=== PATIENT | female | born 1965 | race Two or more races ===

== ENCOUNTER → 2016-07-16 | Outpatient (CLI) | payer MEDICARE, MEDICAID ==
[~2016-07-16] MED LIST: CLON0.123; FOLI1TAB6; METH2.5T3; OXYCONTIN; PERCOT; VALS40TA2
[2016-07-16 15:15] LABS: Basophils # (auto) 0 uL; Basophils % (auto) 0.4 % (0.0-2.0); DEFINITIVE VIEW TRANSMISSION; Eosinophils # (auto) 0.3 uL; Eosinophils % (auto) 6.7 % (0.0-7.0); Hematocrit 37.3 % (36.0-46.0); Hemoglobin 12.1 g/dL (12.2-16.2); Lymphocytes # (auto) 1.5 uL; Lymphocytes % (auto) 34.2 % (10.0-50.0); Mean Corpuscular Hgb Conc. 32.4 g/dL (32.0-36.0); Mean Corpuscular Volume 83.4 fL (80.0-100.0); Mean Platelet Volume 7.4 fL (7.4-10.4); Monocytes # (auto) 0.4 uL; Monocytes % (auto) 9.2 % (0.0-12.0); Neutrophils # (auto) 2.1 uL; Neutrophils % (auto) 49.5 % (37.0-80.0); Platelet Count (auto) 267 10^3/uL (140-450); Red Cell Distribution Width 15.6 % (11.6-16.0); White Blood Cell 4.3 10^3/uL (4.4-10.8)
[2016-07-16 15:44] LABS: Albumin 3.3 g/dL (3.4-5.0); BUN/Creatinine Ratio 15.9; Bilirubin, Total 0.3 mg/dL (0.2-1.0); Calcium 8.9 mg/dL (8.5-10.1); Potassium 3.5 mmol/L (3.5-5.1); Total Protein 8.6 g/dL (6.4-8.2)
== END | disposition home or self-care (01) ==
LOC: LAB 14:55
DX: I10 Essential (primary) hypertension (principal); Z79.899 Other long term (current) drug therapy; D64.9 Anemia, unspecified; M25.50 Pain in unspecified joint; M06.9 Rheumatoid arthritis, unspecified
CPT/HCPCS: 36415; 80053; 85025; 85652; 86141

== ENCOUNTER 2016-11-16 01:29 | Emergency (ER) | payer MEDICARE, MEDICAID ==
[~2016-11-16] VITALS: Ht 162.6 cm; Wt 104.3 kg
[2016-11-16 01:47] VITALS: BP 149/91
== END 2016-11-16 07:48 | disposition left against medical advice (07) ==
LOC: ER 01:29
DX: M79.642 Pain in left hand (principal); Z53.21 Procedure and treatment not carried out due to patient leaving prior to being seen by health care provider; W23.0XXA Caught, crushed, jammed, or pinched between moving objects, initial encounter; Y93.89 Activity, other specified; Y92.89 Other specified places as the place of occurrence of the external cause; Y99.8 Other external cause status
CPT/HCPCS: 73130

== ENCOUNTER → 2016-12-10 | Outpatient (CLI) | payer MEDICARE, MEDICAID ==
[2016-12-10 15:18] LABS: Basophils # (auto) 0 uL; Basophils % (auto) 0.2 % (0.0-2.0); CONDITION Y; Eosinophils # (auto) 0.1 uL; Eosinophils % (auto) 1.5 % (0.0-7.0); Hematocrit 37.8 % (36.0-46.0); Hemoglobin 12.5 g/dL (12.2-16.2); Lymphocytes # (auto) 1.3 uL; Lymphocytes % (auto) 21.9 % (10.0-50.0); Mean Corpuscular Volume 87.7 fL (80.0-100.0); Mean Platelet Volume 6.8 fL (7.4-10.4); Monocytes # (auto) 0.4 uL; Monocytes % (auto) 6.7 % (0.0-12.0); Neutrophils % (auto) 69.7 % (37.0-80.0); Platelet Count (auto) 300 10^3/uL (140-450); Red Cell Distribution Width 15.8 % (11.6-16.0); White Blood Cell 5.8 10^3/uL (4.4-10.8)
[2016-12-10 15:43] LABS: Albumin 3.3 g/dL (3.4-5.0); Calcium 8.5 mg/dL (8.5-10.1); Potassium 3.1 mmol/L (3.5-5.1)
[2016-12-10 16:34] LABS: BUN/Creatinine Ratio 13.3
[2016-12-10 16:38] LABS: Bilirubin, Total 0.2 mg/dL (0.2-1.0); Total Protein 8.4 g/dL (6.4-8.2)
== END | disposition home or self-care (01) ==
LOC: LAB 15:04
DX: I10 Essential (primary) hypertension (principal); M06.9 Rheumatoid arthritis, unspecified; M25.50 Pain in unspecified joint; D64.9 Anemia, unspecified; Z79.899 Other long term (current) drug therapy
CPT/HCPCS: 36415; 80053; 85025; 85652; 86141

== ENCOUNTER 2016-12-26 17:52 | Emergency (ER) | payer MEDICARE, MEDICAID ==
[~2016-12-26] VITALS: Ht 162.6 cm; Wt 99.8 kg
[2016-12-26 18:08] VITALS: BP 134/84
== END 2016-12-26 23:59 | disposition left against medical advice (07) ==
LOC: ER 17:54
DX: R07.9 Chest pain, unspecified (principal); Z53.21 Procedure and treatment not carried out due to patient leaving prior to being seen by health care provider
CPT/HCPCS: 93005

== ENCOUNTER → 2017-03-11 | Outpatient (CLI) | payer MEDICARE, MEDICAID ==
[2017-03-11 15:16] LABS: Hematocrit 38.9 % (36.0-46.0); Hemoglobin 12.7 g/dL (12.2-16.2); Mean Corpuscular Hemoglobin 28.8 pg (28.0-32.0); Mean Corpuscular Hgb Conc. 32.7 g/dL (32.0-36.0); Platelet Count (auto) 217 10^3/uL (140-450); Red Blood Cells 4.43 10^6/uL (4.0-5.20); Red Cell Distribution Width 14.5 % (11.8-14.3); White Blood Cell 6.6 10^3/uL (4.4-10.8)
[2017-03-11 15:42] LABS: Albumin 3.6 g/dL (3.4-5.0); BUN/Creatinine Ratio 17.8; Bilirubin, Total 0.4 mg/dL (0.2-1.0); CRP High Sensitivity 2.16 mg/dL (< 0.3); Calcium 8.4 mg/dL (8.5-10.1); Potassium 3.8 mmol/L (3.5-5.1); Total Protein 8.8 g/dL (6.4-8.2)
[2017-03-11 15:53] LABS: Band Neutrophils % (manual) 0; Basophils % (manual) 0 (0.0-2.0); Blast Cells 0; Metamyelocytes % 0; Myelocytes % 0; Promyelocytes % 0; Reactive Lymphocytes 0
[2017-03-11 20:40] LABS: Eosinophils % (manual) 23 (0-7); Lymphocytes % (manual) 38 (10.0-50.0); Monocytes % (manual) 5 (0-12)
== END | disposition home or self-care (01) ==
LOC: LAB 14:59
DX: I10 Essential (primary) hypertension (principal); I70.0 Atherosclerosis of aorta; E78.00 Pure hypercholesterolemia, unspecified; M06.9 Rheumatoid arthritis, unspecified; D64.9 Anemia, unspecified; Z79.899 Other long term (current) drug therapy
CPT/HCPCS: 36415; 80053; 85007; 85027; 85652; 86141

== ENCOUNTER 2017-08-26 19:17 | Emergency (ER) | payer MEDICARE, MEDICAID ==
[~2017-08-26] VITALS: Ht 162.6 cm; Wt 106.1 kg
[2017-08-26 20:22] VITALS: BP 137/65
[2017-08-26 21:12] LABS: Basophils # (auto) 0 uL; Basophils % (auto) 0.2 % (0.0-2.0); Eosinophils # (auto) 0.1 uL; Eosinophils % (auto) 1.3 % (0.0-7.0); Hematocrit 34.2 % (36.0-46.0); Hemoglobin 11.1 g/dL (12.2-16.2); Lymphocytes # (auto) 1.2 uL; Lymphocytes % (auto) 17.2 % (10.0-50.0); Mean Corpuscular Hemoglobin 28.7 pg (28.0-32.0); Mean Corpuscular Hgb Conc. 32.4 g/dL (32.0-36.0); Mean Corpuscular Volume 88.4 fL (80.0-100.0); Monocytes # (auto) 0.5 uL; Monocytes % (auto) 6.4 % (0.0-12.0); Neutrophils # (auto) 5.3 uL; Neutrophils % (auto) 74.9 % (37.0-80.0); Nucleated Red Blood Cells % 0.1 %; Platelet Count (auto) 215 10^3/uL (140-450); Red Blood Cells 3.87 10^6/uL (4.0-5.20); Red Cell Distribution Width 14.6 % (11.8-14.3)
[2017-08-26 21:32] LABS: Alanine Aminotransferase 20 U/L (13-56); Alkaline Phosphatase 76 U/L (45-117); Anion Gap 6 (5-15); Aspartate Aminotransferase 18 U/L (15-37); Bilirubin, Total 0.3 mg/dL (0.2-1.0); Blood Urea Nitrogen 13 mg/dL (7-18); Calcium 8.3 mg/dL (8.5-10.1); Carbon Dioxide 31 mmol/L (21-32); Chloride 100 mmol/L (98-107); GFR African American 95 mL/min; GFR Non-African American 79 mL/min; Glucose 80 mg/dL (74-106); Magnesium 2.2 mg/dL (1.6-2.6); Potassium 3.5 mmol/L (3.5-5.1); Sodium 137 mmol/L (136-145); Total Protein 8.1 g/dL (6.4-8.2)
== END 2017-08-27 01:25 | disposition left against medical advice (07) ==
LOC: ER 19:17
DX: R07.9 Chest pain, unspecified (principal); Z53.21 Procedure and treatment not carried out due to patient leaving prior to being seen by health care provider
CPT/HCPCS: 36415; 71045; 73030; 80053; 83735; 83880; 84484; 85025; 93005

== ENCOUNTER → 2018-01-15 | Outpatient (CLI) | payer MEDICARE, MEDICAID ==
[2018-01-15 13:02] LABS: Basophils # (auto) 0 uL; Basophils % (auto) 0.3 % (0.0-2.0); Eosinophils # (auto) 0.2 uL; Eosinophils % (auto) 3.6 % (0.0-7.0); Hematocrit 35.5 % (36.0-46.0); Hemoglobin 11.6 g/dL (12.2-16.2); Lymphocytes # (auto) 1.4 uL; Lymphocytes % (auto) 21.2 % (10.0-50.0); Mean Corpuscular Hemoglobin 29.1 pg (28.0-32.0); Mean Corpuscular Hgb Conc. 32.7 g/dL (32.0-36.0); Mean Corpuscular Volume 89.1 fL (80.0-100.0); Monocytes # (auto) 0.4 uL; Monocytes % (auto) 6.9 % (0.0-12.0); Neutrophils # (auto) 4.4 uL; Platelet Count (auto) 177 10^3/uL (140-450); Red Blood Cells 3.99 10^6/uL (4.0-5.20); Red Cell Distribution Width 14.3 % (11.8-14.3); White Blood Cell 6.5 10^3/uL (4.4-10.8)
[2018-01-15 13:50] LABS: Albumin 3.1 g/dL (3.4-5.0); BUN/Creatinine Ratio 12.2; Bilirubin, Total 0.7 mg/dL (0.2-1.0); Calcium 8.7 mg/dL (8.5-10.1); Potassium 3.7 mmol/L (3.5-5.1); Total Protein 7.9 g/dL (6.4-8.2)
== END | disposition home or self-care (01) ==
LOC: LAB 12:43
PROVIDERS: ATTEND Physician Assistant
DX: Z00.01 Encounter for general adult medical examination with abnormal findings (principal); I10 Essential (primary) hypertension; E03.9 Hypothyroidism, unspecified; M13.0 Polyarthritis, unspecified; M06.9 Rheumatoid arthritis, unspecified
CPT/HCPCS: 36415; 80053; 80061; 84443; 85025

== ENCOUNTER → 2018-03-04 | Outpatient (CLI) | payer MEDICARE, MEDICAID ==
[~2018-03-04] MED LIST changes: +ALBUTEROL SULF 2.5 MG/0.5ML(0.5%) NEB SOLN ONE
== END | disposition home or self-care (01) ==
LOC: RT 08:09
PROVIDERS: ATTEND Internal Medicine Pulmonary Disease
DX: R06.00 Dyspnea, unspecified (principal); M54.30 Sciatica, unspecified side; R09.02 Hypoxemia
CPT/HCPCS: 94060; 94618; 94727; 94729; J7611

== ENCOUNTER 2018-09-12 02:24 | Emergency (ER) | payer MEDICARE, MEDICAID ==
[~2018-09-12] VITALS: Ht 162.6 cm; Wt 94.3 kg
[~2018-09-12 02:24] MED LIST changes: -ALBUTEROL SULF 2.5 MG/0.5ML(0.5%) NEB SOLN ONE
[2018-09-12 02:40] VITALS: BP 165/92
[2018-09-12] MEDS ORDERED: ONDANSETRON ODT 4 MG TAB PO ONE (04:15)
[2018-09-12] MEDS ORDERED: MEPERIDINE HCL (50 MG/ML) 1 ML VIAL IM ONE (04:15)
[2018-09-12] MEDS ORDERED: TRIAMCINOLONE 40MG/ML 1ML VIAL IM ONE (04:15)
[2018-09-12] MEDS ORDERED: EPINEPHrine HCL 1 MG/1 ML AMP IM ONE (05:00)
== END 2018-09-12 05:28 | disposition home or self-care (01) ==
LOC: ER 02:27
DX: M06.9 Rheumatoid arthritis, unspecified (principal); B35.3 Tinea pedis; J44.9 Chronic obstructive pulmonary disease, unspecified; I10 Essential (primary) hypertension; Z88.2 Allergy status to sulfonamides; Z91.040 Latex allergy status
CPT/HCPCS: 96372; 99283; J0171; J2175; J3301; Q0162

== ENCOUNTER 2019-04-15 03:35 | Emergency (ER) | payer MEDICARE, MEDICAID ==
[~2019-04-15] VITALS: Ht 162.6 cm; Wt 98.4 kg
[2019-04-15] MEDS ORDERED: KETOROLAC TROMETH 60MG/2ML VIAL IM ONE (06:00)
[2019-04-15 06:09] LABS: Basophils # (auto) 0 uL; Basophils % (auto) 0.3 % (0.0-2.0); Eosinophils # (auto) 0 uL; Hematocrit 37.2 % (36.0-46.0); Hemoglobin 12.5 g/dL (12.2-16.2); Lymphocytes # (auto) 0.8 uL; Lymphocytes % (auto) 9.2 % (10.0-50.0); Mean Corpuscular Hemoglobin 28.7 pg (28.0-32.0); Mean Corpuscular Hgb Conc. 33.6 g/dL (32.0-36.0); Mean Corpuscular Volume 85.4 fL (80.0-100.0); Monocytes # (auto) 0.1 uL; Monocytes % (auto) 0.7 % (0.0-12.0); Neutrophils % (auto) 89.8 % (37.0-80.0); Platelet Count (auto) 223 10^3/uL (140-450); Red Blood Cells 4.35 10^6/uL (4.0-5.20); White Blood Cell 8.9 10^3/uL (4.4-10.8)
[2019-04-15 06:20] LABS: Urine Bacteria NONE SEEN /hpf (None Seen); Urine Blood TRACE /uL (Negative); Urine Specific Gravity 1.007 (1.001-1.035); Urine WBC 1 /hpf (0 - 5)
[2019-04-15 06:29] LABS: Albumin 3.5 g/dL (3.4-5.0); Anion Gap 8 (5-15); Blood Urea Nitrogen 12 mg/dL (7-18); Calcium 8.7 mg/dL (8.5-10.1); Carbon Dioxide 25 mmol/L (21-32); Chloride 109 mmol/L (98-107); Glucose 137 mg/dL (74-106); Potassium 3.7 mmol/L (3.5-5.1); Sodium 142 mmol/L (136-145)
[2019-04-15 06:33] LABS: Alanine Aminotransferase 13 U/L (13-56); Alkaline Phosphatase 87 U/L (45-117); Aspartate Aminotransferase 12 U/L (15-37); BUN/Creatinine Ratio 17.4; Bilirubin, Total 0.3 mg/dL (0.2-1.0); GFR African American 114 mL/min; GFR Non-African American 95 mL/min; Total Protein 8.7 g/dL (6.4-8.2)
[2019-04-15] MEDS ORDERED: PROMETHAZINE HCL 25 MG/ML 1ML IV ONE (08:30)
[2019-04-15] MEDS ORDERED: HYDROmorphone HCL 2 MG/ML VL IV ONE (08:30)
[2019-04-15 10:05] VITALS: BP 114/54
== END 2019-04-15 12:38 | disposition left against medical advice (07) ==
LOC: EDBD 03:35 → ER 03:37
DX: G89.29 Other chronic pain (principal); R07.81 Pleurodynia; R11.2 Nausea with vomiting, unspecified; M19.90 Unspecified osteoarthritis, unspecified site; J44.9 Chronic obstructive pulmonary disease, unspecified; I10 Essential (primary) hypertension; Z91.040 Latex allergy status; Z88.2 Allergy status to sulfonamides; Z88.8 Allergy status to other drugs, medicaments and biological substances
CPT/HCPCS: 36415; 80053; 81001; 84484; 85025; 93005; 96372; 96374; 96375; 99284; J1170; J1885; J2550

== ENCOUNTER → 2019-12-16 | Outpatient (CLI) | payer MEDICARE, MEDICAID ==
[~2019-12-16] MED LIST changes: +METH2.5T; -METH2.5T3
[2019-12-16 15:42] LABS: Basophils # (auto) 0 10 ^3/uL (0-0.2); Basophils % (auto) 0.3 % (0.0-2.0); Eosinophils # (auto) 0.2 10 ^3/uL (0-0.8); Eosinophils % (auto) 3.5 % (0.0-7.0); Hematocrit 35.1 % (36.0-46.0); Hemoglobin 11.3 g/dL (12.2-16.2); Lymphocytes # (auto) 1.1 10 ^3/uL (0.4-5.4); Lymphocytes % (auto) 20.7 % (10.0-50.0); Mean Corpuscular Hemoglobin 27.3 pg (28.0-32.0); Mean Corpuscular Hgb Conc. 32.2 g/dL (32.0-36.0); Mean Corpuscular Volume 84.8 fL (80.0-100.0); Monocytes # (auto) 0.3 10 ^3/uL (0-1.3); Monocytes % (auto) 6.5 % (0.0-12.0); Neutrophils # (auto) 3.5 10 ^3/uL (1.6-8.6); Platelet Count (auto) 219 10^3/uL (140-450); Red Blood Cells 4.13 10^6/uL (4.0-5.20); White Blood Cell 5.1 10^3/uL (4.4-10.8)
[2019-12-16 17:11] LABS: Albumin 3.2 g/dL (3.4-5.0); Calcium 8.8 mg/dL (8.5-10.1); Potassium 3.8 mmol/L (3.5-5.1)
[2019-12-16 17:20] LABS: BUN/Creatinine Ratio 18.6; Bilirubin, Total 0.2 mg/dL (0.2-1.0); CRP High Sensitivity 1.72 mg/dL (< 0.3); Total Protein 8.1 g/dL (6.4-8.2)
== END | disposition home or self-care (01) ==
LOC: LAB 15:01
PROVIDERS: ATTEND Physician Assistant
DX: E03.9 Hypothyroidism, unspecified (principal); M06.4 Inflammatory polyarthropathy; M06.9 Rheumatoid arthritis, unspecified; I10 Essential (primary) hypertension; Z00.00 Encounter for general adult medical examination without abnormal findings; M79.7 Fibromyalgia; L40.9 Psoriasis, unspecified
CPT/HCPCS: 36415; 80053; 80061; 82306; 82550; 84436; 84443; 84480; 85025; 85652; 86141

== ENCOUNTER → 2020-08-17 | Outpatient (CLI) | payer MEDICARE, MEDICAID ==
[2020-08-17 17:15] LABS: Basophils # (auto) 0 10 ^3/uL (0-0.2); Basophils % (auto) 0.5 % (0.0-2.0); Eosinophils # (auto) 0.2 10 ^3/uL (0-0.8); Eosinophils % (auto) 5.3 % (0.0-7.0); Hematocrit 33.4 % (36.0-46.0); Hemoglobin 11.2 g/dL (12.2-16.2); Lymphocytes # (auto) 1.4 10 ^3/uL (0.4-5.4); Lymphocytes % (auto) 35.4 % (10.0-50.0); Mean Corpuscular Hemoglobin 29.1 pg (28.0-32.0); Mean Corpuscular Hgb Conc. 33.6 g/dL (32.0-36.0); Mean Corpuscular Volume 86.5 fL (80.0-100.0); Monocytes # (auto) 0.3 10 ^3/uL (0-1.3); Neutrophils # (auto) 2.1 10 ^3/uL (1.6-8.6); Neutrophils % (auto) 51.8 % (37.0-80.0); Platelet Count (auto) 194 10^3/uL (140-450); Red Blood Cells 3.86 10^6/uL (4.0-5.20); Red Cell Distribution Width 14.1 % (11.8-14.3)
[2020-08-17 17:18] LABS: Calcium 8.7 mg/dL (8.5-10.1)
[2020-08-17 17:24] LABS: Urine Amorphous Crystal FEW /hpf (None Seen); Urine Bacteria FEW /hpf (None Seen); Urine Blood Negative /uL (Negative); Urine Specific Gravity 1.014 (1.001-1.035); Urine WBC 1 /hpf (0 - 5)
[2020-08-17 17:26] LABS: BUN/Creatinine Ratio 15.6; Bilirubin, Total 0.2 mg/dL (0.2-1.0); CRP High Sensitivity 3.48 mg/dL (< 0.3); Total Protein 7.8 g/dL (6.4-8.2)
[2020-08-18 13:35] LABS: Hepatitis B Core IgM Negative; Hepatitis B Surface Antigen Negative (Negative)
== END | disposition home or self-care (01) ==
LOC: LAB 16:24
DX: M06.9 Rheumatoid arthritis, unspecified (principal); M54.2 Cervicalgia; Z79.899 Other long term (current) drug therapy
CPT/HCPCS: 36415; 80053; 81001; 85025; 85652; 86038; 86141; 86431; 86705; 87086; 87340

== ENCOUNTER 2020-09-11 08:59 | Emergency (ER) | payer MEDICARE, MEDICAID ==
[~2020-09-11] VITALS: Ht 162.6 cm; Wt 90.7 kg
[2020-09-11 09:40] VITALS: BP 140/98
[2020-09-11] MEDS ORDERED: KETOROLAC TROMETH 60MG/2ML VIAL IM ONE (10:00)
== END 2020-09-11 10:27 | disposition home or self-care (01) ==
LOC: ER 08:59
DX: M54.16 Radiculopathy, lumbar region (principal); J44.9 Chronic obstructive pulmonary disease, unspecified; I10 Essential (primary) hypertension; Z90.49 Acquired absence of other specified parts of digestive tract; Z88.1 Allergy status to other antibiotic agents; Z88.2 Allergy status to sulfonamides; Z91.040 Latex allergy status
CPT/HCPCS: 96372; 99283; J1885

== ENCOUNTER → 2021-04-14 | Outpatient (CLI) | payer MEDICARE, MEDICAID ==
[2021-04-14 15:35] LABS: Basophils # (auto) 0 10 ^3/uL (0-0.2); Basophils % (auto) 0.3 % (0.0-2.0); Eosinophils # (auto) 0.2 10 ^3/uL (0-0.8); Eosinophils % (auto) 4.1 % (0.0-7.0); Hematocrit 34.7 % (36.0-46.0); Hemoglobin 11.4 g/dL (12.2-16.2); Lymphocytes # (auto) 1.2 10 ^3/uL (0.4-5.4); Lymphocytes % (auto) 24.5 % (10.0-50.0); Mean Corpuscular Hemoglobin 27.3 pg (28.0-32.0); Mean Corpuscular Hgb Conc. 32.9 g/dL (32.0-36.0); Monocytes # (auto) 0.3 10 ^3/uL (0-1.3); Monocytes % (auto) 5.5 % (0.0-12.0); Neutrophils # (auto) 3.1 10 ^3/uL (1.6-8.6); Neutrophils % (auto) 65.6 % (37.0-80.0); Nucleated Red Blood Cells % 0.1 %; Red Blood Cells 4.18 10^6/uL (4.0-5.20); Red Cell Distribution Width 13.9 % (11.8-14.3); White Blood Cell 4.8 10^3/uL (4.4-10.8)
[2021-04-14 16:10] LABS: Albumin 2.9 g/dL (3.4-5.0); BUN/Creatinine Ratio 24.1; Calcium 8.2 mg/dL (8.5-10.1); Potassium 4.1 mmol/L (3.5-5.1)
[2021-04-14 16:13] LABS: Bilirubin, Total 0.3 mg/dL (0.2-1.0)
== END | disposition home or self-care (01) ==
LOC: LAB 15:06
PROVIDERS: ATTEND Nurse Practitioner Family
DX: E03.9 Hypothyroidism, unspecified (principal); M79.7 Fibromyalgia; M06.9 Rheumatoid arthritis, unspecified; I10 Essential (primary) hypertension; Z00.00 Encounter for general adult medical examination without abnormal findings
CPT/HCPCS: 36415; 80053; 84439; 84443; 85025; 85652; 86431

== ENCOUNTER 2021-11-22 16:16 | Emergency (ER) | payer MEDICARE, MEDICAID ==
[~2021-11-22] VITALS: Ht 162.6 cm; Wt 88.5 kg
[2021-11-22 19:39] VITALS: BP 148/88
[2021-11-22] MEDS ORDERED: DexAMETHasone SOD PHOS 10MG/1ML VIAL INJ PO ONE (20:15)
[2021-11-22] MEDS ORDERED: diphenhdrAMINE HCL 12.5 MG/5 ML UD PO ONE (20:15)
[2021-11-22] MEDS ORDERED: PRED20TA2 PO (20:23)
[2021-11-22] MEDS ORDERED: AMOX-277 PO (20:23)
== END 2021-11-22 20:46 | disposition home or self-care (01) ==
LOC: ER 16:16
DX: L40.50 Arthropathic psoriasis, unspecified (principal); I10 Essential (primary) hypertension; J44.9 Chronic obstructive pulmonary disease, unspecified; Z90.49 Acquired absence of other specified parts of digestive tract; Z79.2 Long term (current) use of antibiotics; Z79.899 Other long term (current) drug therapy; Z88.1 Allergy status to other antibiotic agents; Z88.2 Allergy status to sulfonamides; Z91.040 Latex allergy status
CPT/HCPCS: 99283; J1100

== ENCOUNTER 2021-12-20 13:52 | Emergency (ER) | payer MEDICARE, MEDICAID ==
[~2021-12-20] VITALS: Ht 162.6 cm; Wt 98.6 kg
[~2021-12-20 13:52] MED LIST changes: +AMOX-277 PO; +PRED20TA2 PO
[2021-12-20 14:24] VITALS: BP 153/93
[2021-12-20 17:11] LABS: Basophils # (auto) 0 10 ^3/uL (0-0.2); Basophils % (auto) 0.3 % (0.0-2.0); Eosinophils # (auto) 0.3 10 ^3/uL (0-0.8); Eosinophils % (auto) 6.9 % (0.0-7.0); Hematocrit 36.6 % (36.0-46.0); Hemoglobin 11.7 g/dL (12.2-16.2); Lymphocytes # (auto) 1.1 10 ^3/uL (0.4-5.4); Lymphocytes % (auto) 27.1 % (10.0-50.0); Mean Corpuscular Hemoglobin 27.5 pg (28.0-32.0); Mean Corpuscular Hgb Conc. 32.1 g/dL (32.0-36.0); Mean Corpuscular Volume 85.6 fL (80.0-100.0); Monocytes # (auto) 0.3 10 ^3/uL (0-1.3); Monocytes % (auto) 6.6 % (0.0-12.0); Neutrophils # (auto) 2.3 10 ^3/uL (1.6-8.6); Neutrophils % (auto) 59.1 % (37.0-80.0); Nucleated Red Blood Cells % 0.1 %; Red Blood Cells 4.27 10^6/uL (4.0-5.20); Red Cell Distribution Width 13.6 % (11.8-14.3); White Blood Cell 3.9 10^3/uL (4.4-10.8)
[2021-12-20 17:49] LABS: Albumin 2.9 g/dL (3.4-5.0); BUN/Creatinine Ratio 17.5; Calcium 8.4 mg/dL (8.5-10.1); Potassium 3.7 mmol/L (3.5-5.1)
[2021-12-20 17:52] LABS: Bilirubin, Total 0.2 mg/dL (0.2-1.0); Total Protein 7.3 g/dL (6.4-8.2)
== END 2021-12-21 06:41 | disposition left against medical advice (07) ==
LOC: ER 13:52
DX: S91.002A Unspecified open wound, left ankle, initial encounter (principal); Z53.21 Procedure and treatment not carried out due to patient leaving prior to being seen by health care provider; X58.XXXA Exposure to other specified factors, initial encounter; Y93.89 Activity, other specified; Y92.89 Other specified places as the place of occurrence of the external cause; Y99.8 Other external cause status
CPT/HCPCS: 36415; 80053; 83605; 85025; 87040

== ENCOUNTER 2024-11-06 18:31 | Inpatient (IN) | payer MEDICARE, MEDICAID ==
[~2024-11-06] VITALS: Ht 162.6 cm; Wt 94.0 kg
[~2024-11-06 18:31] MED LIST changes: -AMOX-277 PO; +AMOX875T4 PO; +BACL10TA PO; +FOLI-119; -FOLI1TAB6
--- NOTE | 2024-11-06 18:33 | ED.PDOC ---
HPI Allergic reaction HPI Comments HPI: Poor Historian. Past Medical History: Past Surgical History: 59y F who presents to the ED via EMS for chief complaint of allergic reaction. - pt states she was eating jicama 40 minutes prior and states while eating, she started to have shortness of breath with associated whole body hives and whole body pruritis - pt states she felt her throat started to close and took an injection of her epi pen and proceeded to call EMS - EMS arrived on scene and noted pt had 02 sat of 78% on room air and pt was placed on 6 L via nc and 02 sat margarita of 92% - EMS gave pt epi 1 dose and Benadryl IM and pt vitals started to stabilize and pt was brought to the ED - pt in the ED, otherwise states she had previously had allergic reaction to bananas and previously hospitalized - pt otherwise denies any other symptoms at this time past medical history: arthritis, RA, psoriatic arthritis, Raynaud syndrome past surgical history: cholecystomy, , lap band surgery, ectopic , allergies: latex, sulfa, azithromycin, bananas, copan medications: denies social history: denies tobacco use, denies ETOH use, denies drug use REVIEW OF SYSTEMS: CONSTITUTIONAL: Denies acute: fever, diaphoresis, chills, generalized weakness. HEAD: Denies acute: headache, photophobia Eyes: Denies acute: Double vision, vision loss, eye pain, eye discharge. EARS: Denies acute: tinnitus, hearing loss, ear discharge, ear pain, THROAT: Denies acute: sore throat, swelling, difficulty swallowing , pain with swallowing, change in voice. NECK: Denies acute: neck pain, neck swelling, stiff neck. HEART: Denies acute : chest pain, palpitations, LUNGS: Denies acute: SOB, wheezing, cough, hemoptysis ABDOMEN: Denies acute: abdominal pain, Nausea, Vomiting, diarrhea, melena , hematemesis, hematochezia SKIN: Denies acute: rash, redness, lesions, itchiness. EXTREMITIES: Denies acute: calf pain, numbness, tingling, weakness, denies pain in extremity. Denies acute: Low back pain. Neuro: Denies acute: focal neurological deficit, motor or sensory focal neurological deficit, tremors, seizure like activity, confusion, dizziness, change in mental status, loss of bowel or bladder function, cauda equina like symptoms. : Denies acute: dysuria, hematuria, flank pain, increase in urinary frequency. PSYCH: Denies acute: hallucination, suicidal ideation, homicidal ideation. FEMALE: Denies acute: abnormal vaginal bleeding, foul odor, unusual discharge. PHYSICAL EXAM: General: -----[id number]---acute distress, awake and alert. Head: normocephalic, atraumatic. Neck: supple, trachea is midline, no swelling. Throat: Normal phonation. No swelling, no obstruction, no drooling, no erythema, no exudates, Eyes:, no erythema, no purulent discharge, no proptosis, no icterus. Heart: regular rate, regular rhythm, no significant murmur appreciated. Lungs: no apparent respiratory distress, Able to speak in full sentences. No wheezing, no rhonchi, no crackles. No stridors Clear to auscultation bilaterally. Patient states she feels significantly better now compared to when she 1st called 911. Patient is on supplemental oxygen 6 L nasal cannula Abdomen: non tender to palpation, non distended, soft, no guarding, no rebound, + bowel sounds. Neuro: Awake, Alert, oriented to name, self, situation, follows commands GCS=15. Speech is normal. Skin: no petechia, no purpura, no cyanosis, non-pale, not jaundice. No apparent whelps or hives. However patient has some generalized erythema particularly in the face and the neck bilaterally. Lower extremities: --no - Pitting edema no deformity, no focal swelling, no calf TTP. Makes eye contact. moves all four extremities. Face: no apparent facial droop. No nuchal rigidity, Kernig's sign, Brudzinski's sign, no meningeal signs. ED COURSE: DISCLAIMER: This medical document was created using an electronic medical record system with voice recognition software and computerized dictation system. Although this document has been carefully reviewed, there might still be some phonetic and typographical errors. Occasional wrong-word or "sound-alike" substitutions may have occurred due to the inherent limitations of voice recognition software. These areas are purely typographical due to imperfections of the software programs and do not reflect any compromise in the patient's medical care. Please read the chart carefully and recognize, using context, where these substitutions have occurred. Time Seen by MD: 18:32 Primary Care Provider: Shaina PYLE Reviewed Notes: Nurses Notes, Medications Allergies: Coded Allergies: Azithromycin (Verified Allergy, Severe, rash, 09/11/20) Latex (Unverified Allergy, Severe, 10/12/14) Sulfa Drugs (Verified Allergy, Mild, 06/09/12) Uncoded Allergies: "NO NARCOTICS" (Adverse Reaction, Unknown, ADDICTION, 08/08/23) Home Meds Active Scripts Baclofen (Baclofen) 10 Mg Tab, 10 MG PO BID, #30 TAB Prov:KURT HOUSE 08/08/23 Amoxicillin & Pot Clavulanate (Amoxicillin/Potassium Cla) 875 Mg Tab, 1 TAB PO B ID for 7 Days, #14 TAB 0 Refills Prov:BUD CALLE 11/22/21 Prednisone (Prednisone) 20 Mg Tab, 20 MG PO TID for 7 Days, #21 MG 0 Refills Prov:BUD CALLE 11/22/21 Reported Medications Methotrexate (Methotrexate) 2.5 Mg Tab 12/19/11 Clonazepam (Clonazepam Orally Disinte) 0.125 Mg Tab 12/19/11 Valsartan (Diovan) 40 Mg Tab 12/19/11 Folic Acid (Folic Acid) 1 Mg Tab 12/19/11 Oxycodone W/ Acetaminophen (Percocet 5/325MG) 1 Tab Tb 08/30/11 [Oxycontin] No Conflict Check 07/21/11 Information Source: Patient, Emergency Med Personnel Mode of Arrival: EMS Past Medical History PAST MEDICAL HISTORY: Arthritis, COPD, Gallstones, HTN, Kidney Stones Surgical History: Cholecystectomy, 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 Was a procedure done?: No Differential diagnosis (all) Differential Diagnosis: Anaphylaxis, Angioedema, Bronchospasm, Contact Dermatitis, Drug Reaction, Hypotension, Renal Failure, Respiratory Failure, Shock, Urticaria X-Ray, Labs, Meds, VS Vital Signs Date Time Temp Pulse Resp B/P (MAP) Pulse Ox O2 Delivery O2 Flow Rate FiO2 11/06/24 22:00 84 16 143/87 (105) 96 11/06/24 21:37 94 Room Air* 0 21 11/06/24 21:37 84 18 166/95 94 0.0 21 11/06/24 21:37 94 Room Air 11/06/24 20:09 17 Room Air* 0 11/06/24 19:58 98.4 96 16 166/95 (118) 94 98.4 11/06/24 19:34 98.2 93 16 193/109 (137) 92 98.2 Lab Test 11/06/24 21:37 11/06/24 21:33 11/06/24 19:54 11/06/24 18:47 Range/Units Troponin I High Sensitivity 5 5 4 </=34 ng/L Urine Color Light-yellow Yellow Urine Clarity Clear Clear Urine pH 6.5 5.0-9.0 Urine Specific [place] 1.011 1.001-1.035 Urine Protein Negative Negative Urine Ketones Negative Negative Urine Blood Negative Negative /uL Urine Nitrite Negative Negative Urine Bilirubin Negative Negative Urine Urobilinogen Normal Negative mg/dL Urine Leukocyte Esterase 1+ Negative /uL Urine RBC 2 0 - 4 /hpf Urine Microscopic WBC 8 H 0-5 /HPF Urine Squamous Epithelial Cells Few <5 /hpf Urine Bacteria Many H None Seen /hpf Urine Mucus Few None Seen Urine Glucose Normal Normal mg/dL White Blood Count 6.9 4.4-10.8 10^3/uL Red Blood Count 4.53 4.0-5.20 10^6/uL Hemoglobin 12.7 12.2-16.2 g/dL Hematocrit 37.4 36.0-46.0 % Mean Corpuscular Volume 82.6 80.0-100.0 fL Mean Corpuscular Hemoglobin 27.9 L 28.0-32.0 pg Mean Corpuscular Hemoglobin Concent 33.8 32.0-36.0 g/dL Red Cell Distribution Width 13.9 11.8-14.3 % Platelet Count 183 140-450 10^3/uL Mean Platelet Volume 7.5 6.9-10.8 fL Neutrophils (%) (Auto) 71.0 37.0-80.0 % Lymphocytes (%) (Auto) 22.8 10.0-50.0 % Monocytes (%) (Auto) 4.7 0.0-12.0 % Eosinophils (%) (Auto) 1.4 0.0-7.0 % Basophils (%) (Auto) 0.1 0.0-2.0 % Neutrophils # (Auto) 4.9 1.6-8.6 10 ^3/uL Lymphocytes # (Auto) 1.6 0.4-5.4 10 ^3/uL Monocytes # (Auto) 0.3 0-1.3 10 ^3/uL Eosinophils # (Auto) 0.1 0-0.8 10 ^3/uL Basophils # (Auto) 0 0-0.2 10 ^3/uL Nucleated Red Blood Cells 0.1 % Sodium Level 141 136-145 mmol/L Potassium Level 3.2 L 3.5-5.1 mmol/L Chloride Level 107 98-107 mmol/L Carbon Dioxide Level 24 20-31 mmol/L Anion Gap 10 5-15 Blood Urea Nitrogen 13 9-23 mg/dL Creatinine 0.78 0.550-1.02 mg/dL Glomerular Filtration Rate Calc 87 >90 mL/min BUN/Creatinine Ratio 16.7 10.0-20.0 Serum Glucose 123 H 74-106 mg/dL Lactic Acid Level 1.0 0.4-2.0 mmol/L Calcium Level 8.9 8.7-10.4 mg/dL Total Bilirubin 0.2 0.2-1.0 mg/dL Aspartate Amino Transferase (AST) 22 <34 U/L Alanine Aminotransferase (ALT) 13 7-40 U/L Alkaline Phosphatase 78 46-116 U/L Total Protein 7.9 5.7-8.2 g/dL Albumin 4.3 3.2-4.8 g/dL [place] [id number] Ph: [phone] DIAGNOSTIC IMAGING Diagnostic Imaging Report : [id number] Signed PATIENT: PAKO REAL ACCT: [id number] UNIT: [id number] : 1965 LOC: ER ROOM / BED: / AGE / SEX: 59 / F ADM STATUS: REG ER SERVICE [id number] ORDERING PHYSICIAN: TRICIA BORRERO DO PROCEDURE(s): CXRP - CHEST PORTABLE REASON: Shortness of breath, allergic reaction ORDER NUMBER(s): [id number], ACCESSION NUMBER(s): [id number] CHEST RADIOGRAPH Indication: Shortness of breath, allergic reaction Technique: Single frontal view of the chest was obtained Comparison: None FINDINGS: Lines and Tubes: None Lungs: No focal consolidation. Pleura: No effusion. No pneumothorax. Cardiomediastinal contours: Unremarkable Bones: No acute osseous abnormality. IMPRESSION: 1. No acute cardiopulmonary disease. ATED BY: ERWIN PENA Jr., DO DICTATED DATE/TIME: 11/06/241907 SIGNED BY: ERWIN PENA Jr., SIGNED DATE/TIME: 11/06/241907 CC: Time of 1ST Reevaluation: 21:54 Reevaluation 1ST: Improved Patient Education/Counseling: Diagnosis, Treatment Family Education/Counseling: No Family Present Comments Patient presented with the above HPI.---anaphylactic rash---workup was initiated. patient was found with the above mentioned diagnosis. the following medications were ordered: please refer to order lists of meds and tests obtained by myself Dr. Borrero. Patient ED course and VS have been stabilized. Patient has been reassessed in the ED and remained in a stable condition. Pertinent incidental findings were discussed with the patient and/or family. Patient/family voices understanding and is agreeable with plan. Patient has been observed in the ED adequate length of time to insure improvement/stability. Escalation of care considered: Consideration of escalation to observation or admission Given the patient's hypoxic state initially and dizziness and shortness of breath and use of two epinephrine prior to arrival, Patient was ADMITTED to the medicine team for further evaluation and treatment of their presentation. All the reports of any imaging studies that were ordered by myself were reviewed by myself. Departure 1 Departure Time of Disposition: 18:41 Impression: Primary Impression: Anaphylactic reaction Disposition: ADMITTED INPATIENT Admit to: [facility] Condition: Guarded Discharged With: Self Critical Care Note Critical Care Time?: Yes (1 hr-critical care time only) I personally scribed for TRICIA BORRERO DO ([email or web address]) on 11/06/24 at 18:33. Electronically submitted by Hailee Jacob ([email or web address]). I personally scribed for TRICIA BORRERO DO ([email or web address]) on 11/06/24 at 19:36. Electronically submitted by Hailee Jacob ([facility]). TRICIA BORRERO DO Nov 06, 2024 18:33
[2024-11-06 19:10] LABS: Basophils # (auto) 0 10 ^3/uL (0-0.2); Basophils % (auto) 0.1 % (0.0-2.0); Eosinophils # (auto) 0.1 10 ^3/uL (0-0.8); Eosinophils % (auto) 1.4 % (0.0-7.0); Hematocrit 37.4 % (36.0-46.0); Hemoglobin 12.7 g/dL (12.2-16.2); Lymphocytes # (auto) 1.6 10 ^3/uL (0.4-5.4); Lymphocytes % (auto) 22.8 % (10.0-50.0); Mean Corpuscular Hemoglobin 27.9 pg (28.0-32.0); Mean Corpuscular Hgb Conc. 33.8 g/dL (32.0-36.0); Mean Corpuscular Volume 82.6 fL (80.0-100.0); Monocytes # (auto) 0.3 10 ^3/uL (0-1.3); Monocytes % (auto) 4.7 % (0.0-12.0); Neutrophils # (auto) 4.9 10 ^3/uL (1.6-8.6); Nucleated Red Blood Cells % 0.1 %; Platelet Count (auto) 183 10^3/uL (140-450); Red Blood Cells 4.53 10^6/uL (4.0-5.20); Red Cell Distribution Width 13.9 % (11.8-14.3); White Blood Cell 6.9 10^3/uL (4.4-10.8)
--- NOTE | 2024-11-06 19:10 | DVH ---
CHEST RADIOGRAPH Indication: Shortness of breath, allergic reaction Technique: Single frontal view of the chest was obtained Comparison: None FINDINGS: Lines and Tubes: None Lungs: No focal consolidation. Pleura: No effusion. No pneumothorax. Cardiomediastinal contours: Unremarkable Bones: No acute osseous abnormality. IMPRESSION: 1. No acute cardiopulmonary disease.
[2024-11-06 19:30] LABS: Alanine Aminotransferase 13 U/L (7-40); Albumin 4.3 g/dL (3.2-4.8); Alkaline Phosphatase 78 U/L (46-116); Anion Gap 10 (5-15); Aspartate Aminotransferase 22 U/L (<34); BUN/Creatinine Ratio 16.7 (10.0-20.0); Blood Urea Nitrogen 13 mg/dL (9-23); Calcium 8.9 mg/dL (8.7-10.4); Carbon Dioxide 24 mmol/L (20-31); Sodium 141 mmol/L (136-145); Total Protein 7.9 g/dL (5.7-8.2)
[2024-11-06 19:32] LABS: Bilirubin, Total 0.2 mg/dL (0.2-1.0); Chloride 107 mmol/L (98-107); Glucose 123 mg/dL (74-106); Potassium 3.2 mmol/L (3.5-5.1)
[2024-11-06] MEDS: methylPREDNISolone SOD SUCC 125 MG/2 ML VL IV ONE (19:52)
[2024-11-06] MEDS: SODIUM CHLORIDE 0.9% 1,000 ML IV ONE (19:52)
[2024-11-06] MEDS: FAMOTIDINE (10MG/ML) 2ML VL IV ONE (19:56)
[2024-11-06 19:58] VITALS: TEMP 98.4
[2024-11-06 20:09] VITALS: RESP 17
[2024-11-06] MEDS: diphenhdrAMINE HCL 50 MG/1 ML VL IV ONE (20:19)
[2024-11-06] MEDS ORDERED: IPRATROPIUM BROM 0.5 MG/2.5ML INH SOL NEB PRN (21:30)
[2024-11-06] MEDS ORDERED: ALBUTEROL SULF 2.5 MG/0.5ML(0.5%) NEB SOLN NEB PRN (21:30)
[2024-11-06] MEDS ORDERED: diphenhdrAMINE HCL 50 MG/1 ML VL IV PRN (21:30)
[2024-11-06] MEDS ORDERED: HYDROcodone-ACET 5/325MG TAB PO PRN (21:30)
[2024-11-06] MEDS ORDERED: DOCUSATE SOD 100 MG CAP PO PRN (21:30)
[2024-11-06 21:37] VITALS: BP 166/95; PULSE 84; RESP 18; O2SAT 94
[2024-11-06 21:54] LABS: Urine Bacteria MANY /hpf (None Seen); Urine Blood Negative /uL (Negative); Urine Clarity Clear (Clear); Urine Color Light-Yellow (Yellow); Urine Mucus FEW (None Seen); Urine Protein, UAD Negative (Negative); Urine Specific Gravity 1.011 (1.001-1.035); Urine Squamous Epithelial Cell FEW /hpf (<5); Urine Urobilinogen Normal (Negative); Urine WBC 8 /HPF (0-5); Urine pH 6.5 (5.0-9.0)
[2024-11-06] MEDS: METOPROLOL TARTRATE 25 MG TAB PO SCH (22:00)
[2024-11-06] MEDS: FAMOTIDINE (10MG/ML) 2ML VL IV SCH (22:00)
[2024-11-06] MEDS: SODIUM CHLOR 0.9% PF (SALINE LOCK) 10ML VIAL/SYR IV SCH (22:04)
[2024-11-06] MEDS: methylPREDNISolone SOD SUCC 40 MG/ML VL IV SCH (22:09)
[2024-11-06] MEDS: POTASSIUM CHL 20 Meq TABLET PO ONE (22:09)
[2024-11-06] MEDS: amLODIPine BESYLATE 5 MG TAB PO ONE (22:12)
[2024-11-06] MEDS: ONDANSETRON HCL 4 MG/2 ML VIAL IV PRN (22:18)
--- NOTE | 2024-11-06 23:12 | DVHHP2 ---
History of Present Illness Reason for Visit: Anaphylactic reaction History of Present Illness The patient is a 59-year-old female with past medical history of arthritis, COPD, gallstones, hypertension, and kidney stones who presented to [facility] ED for evaluation of allergic reaction. Patient reports he started feeling shortness of breaths with associated whole-body hives, pruritis, after eating jicama 40 minutes prior. Patient was seen and evaluated in the ED hypoxia with O2 saturation at 78% on room and was placed on oxygen 6 L/min via nasal cannula and O2 saturation improved to 94%, blood pressure 166/95, heart rate 96, temperature 98.4 F, laboratory data shows WBC 6.9, platelets 183, sodium 141, potassium 3.2, BUN 13, creatinine 0.78, glucose 123, calcium 8.9, troponin 7. Patient was started on Solu-Medrol 125 mg IV x 1, given IV Benadryl, please see medication orders section in the computer. On my assessment, patient denied chest pain, no headache, no dizziness, no diaphoresis, currently on oxygen, no nausea, no vomiting, no fever, no chills. Patient was admitted for further evaluation and medical management. Past Medical History Arthritis, COPD, Gallstones, HTN, Kidney Stones Past Surgical History Cholecystectomy, Family History Reviewed, noncontributory to the management of this case. Past Social History The patient lives at home, denies smoking, alcohol or illicit drugs abuse. Review of Systems Constitutional: No: Fever, Chills, Sweats, Weakness, Malaise, Other Eyes: No: Pain, Vision change, Conjunctivae inflammation, Eyelid inflammation, Other, Redness ENT: No: Ear pain, Ear discharge, Nose pain, Nose discharge, Nose congestion, Mouth pain, Mouth swelling, Throat pain, Throat swelling, Other Respiratory: Shortness of breath; No: Cough, Dry, SOB with excertion, Wheezing, Hemoptysis, Pleuritic Pain, Sputum, Wheezing, Other Cardiovascular: No: Chest Pain, Palpitations, Orthopnea, Paroxysmal Noc. Dyspnea, Edema, Lt Headedness, Other Gastrointestinal: No: Nausea, Vomiting, Abdominal Pain, Diarrhea, Constipation, Melena, Hematochezia, Other Genitourinary: No Dysuria, No Frequency, No Incontinence, No Hematuria, No Retention, No Other Musculoskeletal: No: other, neck pain, shoulder pain, arm pain, back pain, hand pain, leg pain, foot pain Skin: No: Rash, Lesions, Jaundice, Bruising, Other Neurological: No: Weakness, Numbness, Incoordination, Change in speech, Con fusion, Seizures, Other Allergies: Coded Allergies: Azithromycin (Verified Allergy, Severe, rash, 09/11/20) Latex (Unverified Allergy, Severe, 10/12/14) Sulfa Drugs (Verified Allergy, Mild, 06/09/12) Uncoded Allergies: "NO NARCOTICS" (Adverse Reaction, Unknown, ADDICTION, 08/08/23) Medications Current Medications Medications Dose Ordered Sig/Devyn Route Start Time Stop Time Status Last Admin Dose Admin Methylprednisolone Sodium Succinate 40 mg Q8HR IV 11/06/24 22:00 11/06/24 22:09 40 MG Famotidine 20 mg Q12HR IV 11/06/24 22:00 Diphenhydramine HCl 25 mg Q4HP PRN IV 11/06/24 21:30 Sodium Chloride 10 ml Q8HR IV 11/06/24 22:00 11/06/24 22:04 10 ML Acetaminophen/ Hydrocodone Bitart 1 tab Q4HP PRN PO 11/06/24 21:30 Ondansetron HCl 4 mg Q4HP PRN IV 11/06/24 21:30 11/06/24 22:18 4 MG Docusate Sodium 100 mg BIDPRN PRN PO 11/06/24 21:30 Acetaminophen 650 mg Q6HP PRN PO 11/06/24 21:30 Hydralazine HCl 10 mg Q6HP PRN IV 11/06/24 21:30 Albuterol 2.5 mg Q4HPRN PRN NEB 11/06/24 21:30 Ipratropium Maysel 0.5 mg Q4HPRN PRN NEB 11/06/24 21:30 Amlodipine Besylate 5 mg DAILY PO 11/07/24 10:00 Metoprolol Tartrate 25 mg BID PO 11/06/24 22:00 Exam Vital Signs Vital Signs Date Time Temp Pulse Resp B/P (MAP) Pulse Ox O2 Delivery O2 Flow Rate FiO2 11/06/24 22:00 84 16 143/87 (105) 96 11/06/24 21:37 Room Air* 0 21 11/06/24 19:58 98.4 98.4 General Appearance: Alert, Oriented X3, Cooperative, No acute distress HEENT: Atraumatic, PERRLA, EOMI, Mucous membr. moist/pink Respiratory: Clear to auscultation, Normal air movement Cardiovascular: Regular rate, Normal S1, Normal S2, No murmurs Abdominal: Normal bowel sounds, Soft, No tenderness, No hepatospenomegaly, No masses Extremities: No clubbing, No cyanosis, No edema, Normal pulses, No tenderness/swelling Skin: No rashes, No breakdown, No significant lesion Neuro: Normal gait, Normal speech, Strength at 5/5 X4 ext, Normal tone, Sensation intact, Cranial nerves 3-12 NL, Reflexes 2+ Psych/Mental Status: Mental status NL, Mood NL Labs/Xrays Labs Test 11/06/24 21:37 11/06/24 21:33 11/06/24 18:47 Range/Units Troponin I High Sensitivity 5 </=34 ng/L Urine Color Light-yellow Yellow Urine Clarity Clear Clear Urine pH 6.5 5.0-9.0 Urine Specific [place] 1.011 1.001-1.035 Urine Protein Negative Negative Urine Ketones Negative Negative Urine Blood Negative Negative /uL Urine Nitrite Negative Negative Urine Bilirubin Negative Negative Urine Urobilinogen Normal Negative mg/dL Urine Leukocyte Esterase 1+ Negative /uL Urine RBC 2 0 - 4 /hpf Urine Microscopic WBC 8 H 0-5 /HPF Urine Squamous Epithelial Cells Few <5 /hpf Urine Bacteria Many H None Seen /hpf Urine Mucus Few None Seen Urine Glucose Normal Normal mg/dL White Blood Count 6.9 4.4-10.8 10^3/uL Red Blood Count 4.53 4.0-5.20 10^6/uL Hemoglobin 12.7 12.2-16.2 g/dL Hematocrit 37.4 36.0-46.0 % Mean Corpuscular Volume 82.6 80.0-100.0 fL Mean Corpuscular Hemoglobin 27.9 L 28.0-32.0 pg Mean Corpuscular Hemoglobin Concent 33.8 32.0-36.0 g/dL Red Cell Distribution Width 13.9 11.8-14.3 % Platelet Count 183 140-450 10^3/uL Mean Platelet Volume 7.5 6.9-10.8 fL Neutrophils (%) (Auto) 71.0 37.0-80.0 % Lymphocytes (%) (Auto) 22.8 10.0-50.0 % Monocytes (%) (Auto) 4.7 0.0-12.0 % Eosinophils (%) (Auto) 1.4 0.0-7.0 % Basophils (%) (Auto) 0.1 0.0-2.0 % Neutrophils # (Auto) 4.9 1.6-8.6 10 ^3/uL Lymphocytes # (Auto) 1.6 0.4-5.4 10 ^3/uL Monocytes # (Auto) 0.3 0-1.3 10 ^3/uL Eosinophils # (Auto) 0.1 0-0.8 10 ^3/uL Basophils # (Auto) 0 0-0.2 10 ^3/uL Nucleated Red Blood Cells 0.1 % Sodium Level 141 136-145 mmol/L Potassium Level 3.2 L 3.5-5.1 mmol/L Chloride Level 107 98-107 mmol/L Carbon Dioxide Level 24 20-31 mmol/L Anion Gap 10 5-15 Blood Urea Nitrogen 13 9-23 mg/dL Creatinine 0.78 0.550-1.02 mg/dL Glomerular Filtration Rate Calc 87 >90 mL/min BUN/Creatinine Ratio 16.7 10.0-20.0 Serum Glucose 123 H 74-106 mg/dL Lactic Acid Level 1.0 0.4-2.0 mmol/L Calcium Level 8.9 8.7-10.4 mg/dL Total Bilirubin 0.2 0.2-1.0 mg/dL Aspartate Amino Transferase (AST) 22 <34 U/L Alanine Aminotransferase (ALT) 13 7-40 U/L Alkaline Phosphatase 78 46-116 U/L Total Protein 7.9 5.7-8.2 g/dL Albumin 4.3 3.2-4.8 g/dL PATIENT: PAKO REAL ACCT: [id number] UNIT: [id number] : 1965 LOC: ER ROOM / BED: / AGE / SEX: 59 / F ADM STATUS: REG ER SERVICE [id number] ORDERING PHYSICIAN: TRICIA BORRERO DO PROCEDURE(s): CXRP - CHEST PORTABLE REASON: Shortness of breath, allergic reaction ORDER NUMBER(s): [id number], ACCESSION NUMBER(s): [id number] CHEST RADIOGRAPH Indication: Shortness of breath, allergic reaction Technique: Single frontal view of the chest was obtained Comparison: None FINDINGS: Lines and Tubes: None Lungs: No focal consolidation. Pleura: No effusion. No pneumothorax. Cardiomediastinal contours: Unremarkable Bones: No acute osseous abnormality. IMPRESSION: 1. No acute cardiopulmonary disease. Assessment/Plan Assessment/Plan Anaphylactic reaction Shortness of breaths Plan 1. Admit to telemetry unit 2. Breathing treatment 3. Pain control management 4. Management of fluids and electrolytes 5. Consultation for hospitalist 6. Diagnostic tests chest x-ray 7. DVT prophylaxis-on SCDs 8. Repeat labs CBC, CMP in a.m. 9. Continue with current medical management 10. Treatment plan discussed with patient and RN. Patient verbalized understanding. Plan discussed with: Patient, Other (RN) My Orders Orders - REINIER ROWLEY DNP Procedure Category Date Status Time Methylprednisolone PHA 11/06/24 In Process Sod Succ (Solu Medrol 22:00 Famotidine Injection PHA 11/06/24 In Process (Pepcid Injection) 22:00 Diphenhdramine PHA 11/06/24 In Process Injection (Benadryl 21:30 Allergies VANESA 11/06/24 In Process 21:16 Code Status CODE 11/06/24 Transmitted 21:16 Sodium Chloride Lock PHA 11/06/24 In Process (Saline Lock Ns) 22:00 Oxygen Per Hour RT 11/06/24 Transmitted 21:16 Hydrocodone-Acet PHA 11/06/24 In Process 5/325mg Tab ([place] 21:30 Ondansetron Hcl PHA 11/06/24 In Process (Zofran) 21:30 Docusate Sodium PHA 11/06/24 In Process Capsule (Colace 21:30 Complete Blood Count LAB 11/07/24 Verified 04:00 Comprehensive LAB 11/07/24 Verified Metabolic Panel 04:00 Cardiac DIET 11/07/24 Transmitted Diet-2gna,Lofat,Lochol Breakfast Condition: Serious VANESA 11/06/24 In Process 21:16 Acetaminophen Tablet PHA 11/06/24 In Process (Tylenol Tablet) 21:30 Bedrest With Bathroom VANESA 11/06/24 In Process Privileg 21:16 Sequential VANESA 11/06/24 In Process Compression Device Hydralazine Injection PHA 11/06/24 In Process (Apresoline Inject 21:30 Albuterol Medneb PHA 11/06/24 In Process (Ventolin Medneb) 21:30 Ipratropium Medneb PHA 11/06/24 In Process (Atrovent Medneb) 21:30 Amlodipine Tablet PHA 11/07/24 In Process (Norvasc Tablet) 10:00 Metoprolol Tartrate PHA 11/06/24 In Process Tablet (Lopressor Ta 22:00 Admit ADMIT 11/06/24 Verified 23:11 Nitroglycerin [facility] 11/06/24 Verified Sublingual (Ntrostat 23:15 Morphine Sulfate [facility] 11/06/24 Verified Injection 23:15 Stat Ekg For Chest [facility] 11/06/24 Verified Pain 23:11 Notify Md Of Changes [facility] 11/06/24 Verified From Base 23:11 Informatics Specialist For [facility] 11/06/24 Verified 24 Hours 23:11 Emergency Dysrhythmia [facility] 11/06/24 Verified Protocol 23:11 Rhythm Strips Once [facility] 11/06/24 Verified Every Shift 23:11 Oxygen By Nasal 11/06/24 Verified Cannula 23:11 Problem List: (1) Anaphylactic reaction (2) Shortness of breath Date of Service: Nov 06, 2024 Billing Provider: REINIER ROWLEY DNP Common Visit Codes: [id number] INP/OBS CARE (HIGH) REINIER ROWLEY DNP Nov 06, 2024 23:12
[2024-11-06] MEDS ORDERED: MORPHINE SULFATE INJ 2 MG/ml SYRG IV PRN (23:15)
[2024-11-06] MEDS ORDERED: NITROGLYCERIN 0.4 MG SL TAB SL PRN (23:15)
[2024-11-07] MEDS: ACETAMINOPHEN 325 MG TAB PO PRN (01:14)
[2024-11-07 05:44] LABS: Basophils # (auto) 0 10 ^3/uL (0-0.2); Eosinophils # (auto) 0 10 ^3/uL (0-0.8); Hematocrit 35.3 % (36.0-46.0); Hemoglobin 11.8 g/dL (12.2-16.2); Lymphocytes # (auto) 0.4 10 ^3/uL (0.4-5.4); Mean Corpuscular Hemoglobin 27.8 pg (28.0-32.0); Mean Corpuscular Hgb Conc. 33.6 g/dL (32.0-36.0); Mean Corpuscular Volume 82.9 fL (80.0-100.0); Monocytes # (auto) 0 10 ^3/uL (0-1.3); Monocytes % (auto) 0.4 % (0.0-12.0); Neutrophils # (auto) 4.9 10 ^3/uL (1.6-8.6); Neutrophils % (auto) 91.6 % (37.0-80.0); Nucleated Red Blood Cells % 0.1 %; Platelet Count (auto) 183 10^3/uL (140-450); Red Blood Cells 4.26 10^6/uL (4.0-5.20); Red Cell Distribution Width 13.7 % (11.8-14.3); White Blood Cell 5.3 10^3/uL (4.4-10.8)
[2024-11-07 06:09] LABS: Alanine Aminotransferase 16 U/L (7-40); Alkaline Phosphatase 76 U/L (46-116); Anion Gap 9 (5-15); BUN/Creatinine Ratio 16.9 (10.0-20.0); Blood Urea Nitrogen 14 mg/dL (9-23); Calcium 9.3 mg/dL (8.7-10.4); Carbon Dioxide 24 mmol/L (20-31); Potassium 3.9 mmol/L (3.5-5.1); Sodium 142 mmol/L (136-145); Total Protein 7.4 g/dL (5.7-8.2)
[2024-11-07 06:11] LABS: Aspartate Aminotransferase 26 U/L (<34)
[2024-11-07 06:21] LABS: Bilirubin, Total 0.2 mg/dL (0.2-1.0); Chloride 109 mmol/L (98-107); Glucose 170 mg/dL (74-106)
[2024-11-07 07:35] VITALS: BP 193/102
[2024-11-07] MEDS: hydrALAZINE HCL 20 MG/ML VL IV PRN (07:44)
[2024-11-07 07:52] VITALS: PULSE 74; RESP 15; O2SAT 95
[2024-11-07] MEDS ORDERED: amLODIPine BESYLATE 5 MG TAB PO SCH (10:00)
== END 2024-11-07 09:09 | disposition left against medical advice (07) | DRG 916 ==
LOC: EDBD 18:31 → ER 18:31 → OVERFLOW 23:11
PROVIDERS: ADMIT Nurse Practitioner Family; ATTEND Nurse Practitioner Family
DX: T78.2XXA Anaphylactic shock, unspecified, initial encounter (principal); J44.9 Chronic obstructive pulmonary disease, unspecified; I10 Essential (primary) hypertension; Z53.29 Procedure and treatment not carried out because of patient's decision for other reasons; Z90.49 Acquired absence of other specified parts of digestive tract; Z98.891 History of uterine scar from previous surgery; Z88.1 Allergy status to other antibiotic agents; Z91.040 Latex allergy status; Z87.442 Personal history of urinary calculi; Y84.8 Other medical procedures as the cause of abnormal reaction of the patient, or of later complication, without mention of misadventure at the time of the procedure; Y92.89 Other specified places as the place of occurrence of the external cause
CPT/HCPCS: 36415; 71045; 80053; 81001; 83605; 84484; 85025; 96361; 96374; 96375; G0378; J2405; J3490